=== PATIENT | female | born 1990 | race Caucasian/White ===

== ENCOUNTER 2020-01-25 14:09 | Inpatient (IN) ==
[2020-01-25] MEDS ORDERED: ONDANSETRON 4 MG/2 ML VIAL IV PRN (16:19)
[2020-01-25] MEDS ORDERED: DINOPROSTONE VAG GEL 10 MG SYRINGE VAG ONE (16:30)
[2020-01-25] MEDS ORDERED: LACTATED RINGERS 1,000 ML IV SCH (16:30)
[2020-01-25 17:01] LABS: Basophils % 0.2 % (0.0-0.8); Eosinophils # 0.1 10*3/uL (0.0-0.87); Eosinophils % 0.4 % (0.00-10.9); Hematocrit 39.4 VOL% (35.7-47.0); Hemoglobin 12.7 GM/DL (12.0-16.0); Immature Granulocytes % 0.4 %; Immature Granulocytes Absolute 0.06 #; Lymphocytes # 1.9 10*3/uL (1.4-4.0); Lymphocytes % 13.8 % (21.3-54.2); Mean Corpuscular HGB Conc 32.2 GM/DL (32-36); Mean Corpuscular Volume 82.8 FL (87-102); Mean Platelet Volume 10.5 FL (9.6-12.0); Monocytes % 6.2 % (1.7-12.7); Platelet Count 334 T/CUMM (130-400); Red Blood Count 4.76 MC/CUMM (3.8-5.5); White Blood Count 13.8 T/CUMM (4-12)
[2020-01-25 17:13] LABS: Alanine Aminotransferase 16 U/L (13-56); Albumin 2.7 G/DL (3.4-5.0); Alkaline Phosphatase 109 U/L (45-117); Aspartate Amino Transferase 14 U/L (0-37); Bilirubin,Total < 0.39 MG/DL (0.2-1.0); Blood Urea Nitrogen 13 MG/DL (7-18); Calcium 8.7 MG/DL (8.5-10.1); Estimated Glom Filtration Rate 141 ML/MIN; Glucose 78 MG/DL (74-106); Osmolality,Calculated 268.1 MOS/KG (273-304); Total Protein 7.1 G/DL (6.4-8.3); Uric Acid 5.1 MG/DL (2.6-6.0)
[2020-01-25] MEDS ORDERED: BUTORPHANOL 2 MG/ML VIAL IV PRN (21:32)
[2020-01-26] MEDS ORDERED: CITRIC ACID/SODIUM CITRATE 30 ML UDCUP PO ONE (00:34)
[2020-01-26] MEDS ORDERED: PROMETHAZINE 25 MG/1 ML VIAL IM ONE (00:34)
[2020-01-26] MEDS ORDERED: ePHEDrine 50 MG/ML VIAL IV PRN (00:34)
[2020-01-26] MEDS ORDERED: NALOXONE 0.4 MG/ML VIAL IV PRN (00:34)
[2020-01-26] MEDS ORDERED: LACTATED RINGERS 1,000 ML IV ONE (00:34)
[2020-01-26] MEDS ORDERED: FAMOTIDINE 20 MG/2 ML VIAL IV ONE (00:34)
[2020-01-26] MEDS ORDERED: OXYTOCIN 20 UNIT in SODIUM CHLORIDE 0.9% 1,000 ML IV SCH (01:00)
[2020-01-26] MEDS ORDERED: LACTATED RINGERS 1,000 ML IV SCH (01:00)
[2020-01-26] MEDS ORDERED: fentaNYL 2 MCG/ROPIV 0.2% EPID 100 ML EPIDURAL SCH (01:00)
[2020-01-26] MEDS ORDERED: OXYTOCIN/LR 20 UNIT/1,000 ML BAG IV ONE ×2 (01:05→03:28)
[2020-01-26] MEDS ORDERED: OXYTOCIN/LR 20 UNIT/1,000 ML BAG IV SCH (01:30)
[2020-01-26] MEDS ORDERED: METHYLERGONOVINE 0.2 MG/1 ML AMP ONE (02:21)
[2020-01-26] MEDS ORDERED: TRANEXAMIC ACID 1,000 MG/10 ML VIAL ONE (02:21)
[2020-01-26] MEDS ORDERED: miSOPROStoL 200 MCG TABLET ONE (02:21)
[2020-01-26] MEDS ORDERED: CARBOPROST TROMETHAMINE 250 MCG/ML AMP IM ONE (02:21)
[2020-01-26] MEDS ORDERED: LIDOCAINE 1% 50 ML VIAL ONE (03:06)
[2020-01-26 03:22] LABS: Cord Arterial Blood HCO3 18.7 MMOL/L
[2020-01-26 03:26] LABS: Cord Venous Blood HCO3 19.4 MMOL/L; Cord Venous Blood PCO2 56.4 MMHG; Cord Venous Blood PO2 20.3
[2020-01-26] MEDS ORDERED: ACETAMINOPHEN 325 MG TABLET PO PRN (03:28)
[2020-01-26] MEDS ORDERED: ONDANSETRON 4 MG/2 ML VIAL IV PRN (03:28)
[2020-01-26] MEDS ORDERED: DIPH/TET/ACEL PERT BOOSTER VACCINE 0.5 ML VIAL IM ONE (03:28)
[2020-01-26] MEDS ORDERED: BENZOCAINE 20%/MENTHOL 0.5% SPRAY 56 GM CAN TOP PRN (03:28)
[2020-01-26] MEDS ORDERED: RHO(D) IMMUNE GLOBULIN 300 MCG SYRINGE IM ONE (03:28)
[2020-01-26] MEDS ORDERED: MEASLES/MUMPS/RUBELLA VACCINE 0.5 ML VIAL SUBCUT ONE (03:28)
[2020-01-26] MEDS ORDERED: WITCH HAZEL PADS 100/JAR TOP PRN (03:28)
[2020-01-26] MEDS ORDERED: HYDROCORTISONE 2.5% RECTAL CREAM 30 GM TUBE TOP PRN (03:28)
[2020-01-26] MEDS ORDERED: oxyCODONE/ACETAMINOPHEN 5-325 MG TABLET PO PRN (03:28)
[2020-01-26] MEDS ORDERED: BISACODYL 10 MG SUPP RECTAL PRN (03:28)
[2020-01-26] MEDS ORDERED: LANOLIN 50% CREAM 0.3 OZ TUBE TOP PRN (03:28)
[2020-01-26 05:10] LABS: Basophils % 0.3 % (0.0-0.8); Eosinophils % 0.3 % (0.00-10.9); Hematocrit 36.1 VOL% (35.7-47.0); Hemoglobin 11.9 GM/DL (12.0-16.0); Immature Granulocytes % 0.4 %; Immature Granulocytes Absolute 0.06 #; Lymphocytes # 1.2 10*3/uL (1.4-4.0); Lymphocytes % 8.8 % (21.3-54.2); Mean Corpuscular Volume 82.2 FL (87-102); Mean Platelet Volume 10.8 FL (9.6-12.0); Monocytes % 4.8 % (1.7-12.7); Neutrophils % 85.4 % (38.7-73.9); Platelet Count 311 T/CUMM (130-400); Red Blood Count 4.39 MC/CUMM (3.8-5.5); Red Cell Distribution Width 15.1 % (9.3-17.3); White Blood Count 13.5 T/CUMM (4-12)
[2020-01-26] MEDS: IBUPROFEN 800 MG TABLET PO PRN ×4 (06:20→20:50)
[2020-01-26 11:22] LABS: Basophils % 0.3 % (0.0-0.8); Eosinophils # 0.1 10*3/uL (0.0-0.87); Eosinophils % 0.6 % (0.00-10.9); Hematocrit 35.8 VOL% (35.7-47.0); Hemoglobin 11.4 GM/DL (12.0-16.0); Immature Granulocytes % 0.4 %; Immature Granulocytes Absolute 0.06 #; Lymphocytes # 2.2 10*3/uL (1.4-4.0); Lymphocytes % 14.9 % (21.3-54.2); Mean Corpuscular HGB Conc 31.8 GM/DL (32-36); Mean Corpuscular Volume 83.8 FL (87-102); Mean Platelet Volume 9.7 FL (9.6-12.0); Monocytes % 7.6 % (1.7-12.7); Neutrophils % 76.2 % (38.7-73.9); Platelet Count 272 T/CUMM (130-400); Red Blood Count 4.27 MC/CUMM (3.8-5.5); Red Cell Distribution Width 15.3 % (9.3-17.3); White Blood Count 14.5 T/CUMM (4-12)
[2020-01-26] MEDS: oxyCODONE/ACETAMINOPHEN 5-325 MG TABLET PO PRN ×2 (11:45→20:50)
[2020-01-26] MEDS: DOCUSATE SODIUM 100 MG CAPSULE PO SCH ×2 (12:05→20:50)
[2020-01-27] MEDS: oxyCODONE/ACETAMINOPHEN 5-325 MG TABLET PO PRN ×2 (06:10→13:25)
[2020-01-27] MEDS: IBUPROFEN 800 MG TABLET PO PRN ×2 (06:10→13:25)
[2020-01-27 07:39] VITALS: BP 125/63
[2020-01-27] MEDS: DOCUSATE SODIUM 100 MG CAPSULE PO SCH (11:23)
== END 2020-01-27 15:00 | disposition home or self-care (01) | DRG 560 ==
LOC: N.LDOUT 14:09 → N.LD 16:17 → N.OB 01-26 07:36
PROVIDERS: ADMIT Obstetrics & Gynecology; ATTEND Obstetrics & Gynecology